=== PATIENT | female | born 1985 | race Caucasian/White ===

== ENCOUNTER → 2022-12-22 08:00 | Outpatient (CLI) | payer OTHER, SELFPAY ==
--- NOTE | ~2022-12-22 | MMUS_ITS ---
EXAMINATION: MM diagnostic melo BI w yana, US breast BI complete HISTORY: Bilateral breast lumps, on the right at 2:00 and on the left at 12:00 TECHNIQUE: Full field and spot ML, MLO and CC 3-D tomosynthesis images of both breasts were performed and synthetic 2-D images were generated. CAD analysis was submitted and interpreted. High resolution complete bilateral breast ultrasound examination including all 4 quadrants and subareolar areas was performed. COMPARISON: None BREAST PARENCHYMAL COMPOSITION: The breasts are extremely dense, which lowers the sensitivity of mamm ography. FINDINGS: MAMMOGRAPHIC FINDINGS: No suspicious mass or architectural distortion, malignant calcification, skin thickening or retractio n is detected. ULTRASOUND: Right breast: At the 11:00 area 4 cm from the nipple where the patient complains of a lump there is no suspicious m ass or shadowing, cyst or other significant sonographic finding. 12:00 5 cm from nipple: Parallel circumscribed 3.6 x 5.8 x 6.2 mm sonolucency, benign in appearance 4:00 3 cm from nipple: Parallel circumscribed 2.7 x 5.5 mm largely sonolucent lesion without posterio r shadowing, likely benign 8:00 9 cm from nipple: 1.5 x 3.3 mm sonolucency with through transmission, consistent with small cyst 10:00 6 cm from nipple: Parallel circumscribed hypoechoic lesion measuring 8 x 17 x 19 mm, without in ternal vascularity, with through transmission. Ultrasound-guided biopsy is recommended. Left breast: At area of reported palpable abnormality of left breast 11:00 position 10 cm from nipple there is no sonographic mass, cyst or suspicious shadowing. 12:00 4 cm from nipple: There are 2 parallel circumscribed hypoechoic lesions, one with fatty hilum s uggesting lymph node. There is no suspicious shadowing at either of these lesions nor internal vascul arity. These are likely benign. 7:00 5 cm from nipple: 1 x 2.6 mm cyst 10:00 10 cm from nipple: Circular 3 mm circumscribed sonolucency without internal vascularity or post erior shadowing, likely benign 10:00 7 cm from nipple: And well-circumscribed hypoechoic 5.2 x 3.1 x 4.1 mm lesion, without internal vascularity or suspicious shadowing 1:00 3 cm from nipple: Mildly irregular antiparallel hypoechoic approximately 4 x 4.4 mm lesion; due to the antiparallel configuration and irregular margins, ultrasound-guided biopsy is recommended IMPRESSION: 1. Bilateral breast masses 2. Ultrasound-guided biopsy of right 10:00 mass 6 cm from nipple and left 1:00 mass 3 cm from nipple is recommended BI-RADS category 4, suspicious findings. Dr. David telephoned the report and ultrasound-guided biopsy recommendations on 12/22/2022 at 1205 hour s to Nurse Domenica. Reviewed, dictated and finalized at location [facility]. IMPRESSION: 1. Bilateral breast masses 2. Ultrasound-guided biopsy of right 10:00 mass 6 cm from nipple and left 1:00 mass 3 cm from nipple is recommended BI-RADS category 4, suspicious findings. Dr. David telephoned the report and ultrasound-guided biopsy recommendations on 12/22/2022 at 1205 hours to Nurse Domenica.
--- NOTE | ~2022-12-22 | US_ITS ---
Pelvic ultrasound. Clinical History: Pelvic pain Technique: Realtime transabdominal and transvaginal scanning of the pelvis was performed. Color flow Doppler and Doppler spectral analysis were performed. Findings: The uterus is anteverted. The endometrial stripe has a thickness of 7 mm. No focal mass is identified. The right ovary measures 2.7 x 1.8 x 2.9 cm. No significant right ovarian or adnexal mass is seen. The left ovary measures 3.5 x 2.1 x 2.2 cm. No significant left ovarian or adnexal mass is seen. Vascular flow is present in both ovaries on Doppler spectral analysis. There is no evidence of free fluid in the cul de sac. Impression: Unremarkable pelvic ultrasound. Reviewed, dictated and finalized at [facility]. Impression: Unremarkable pelvic ultrasound.
== END ==
PROVIDERS: PCP Nurse Practitioner Family; Visit Provider Advanced Practice Midwife
DX: N63.10 Unspecified lump in the right breast, unspecified quadrant (principal); N63.20 Unspecified lump in the left breast, unspecified quadrant; R10.2 Pelvic and perineal pain; R92.8 Other abnormal and inconclusive findings on diagnostic imaging of breast
CPT/HCPCS: 76641; 76830; 77062; 77066; G0279

== ENCOUNTER 2023-01-05 08:47 | Outpatient (CLI) | payer OTHER, SELFPAY ==
--- NOTE | ~2023-01-05 | MMUS_ITS ---
MM post biopsy invasive RT, US breast biopsy RT w image EXAMINATION: US GUIDED NEEDLE BIOPSY WITH VACUUM ASSISTANCE DATE: 01/05/2023 13:26 CDT INDICATION: Right breast masses seen on prior examination. Ultrasound-guided core biopsy is requeste d to evaluate for malignancy. TECHNIQUE AND FINDINGS: The risks and potential benefits of the procedure were discussed with the patient, and written inform ed consent was obtained. After sterile preparation of the breast, 1% lidocaine was utilized for loca l anesthesia. 1% lidocaine with epinephrine was used for deep anesthesia. Initial images were perfor med to identify the right breast lesion at 1:00, 3 cm from the nipple. This mass cannot be reproduced on the current examination. No definite mammographic correlate is seen. The mass at 10:00, 6 cm from the nipple was identified. This was subsequently biopsied using ultrasound guidance. A 10G vacuum-assisted biopsy gun needle was advanced through to the outer edge of the region of inter est from a superior lateral approach utilizing sonographic guidance. A total of 5 tissue core sample s were obtained through the lesion. An Inrad tissue marker clip was then placed at the biopsy site. Hemostasis was achieved. The patient tolerated procedure well and there was no evidence of immediate complication. The patien t was given verbal instructions partly is from the department. Right breast mammograms to document t issue marker clip placement. The tissue samples were submitted to surgical pathology for histologic a nalysis. IMPRESSION: 1. Successful ultrasound-guided vacuum-assisted biopsy of right breast mass with tissue marker place ment. Please refer to pathology report for histologic analysis. Reviewed, dictated and finalized at location [facility]. IMPRESSION: 1. Successful ultrasound-guided vacuum-assisted biopsy of right breast mass wi th tissue marker placement. Please refer to pathology report for histologic filiberto lysis.
== END 2023-01-05 08:48 | disposition home or self-care (01) ==
PROVIDERS: PCP Nurse Practitioner Family; Visit Provider Surgery
DX: N63.10 Unspecified lump in the right breast, unspecified quadrant (principal); R92.8 Other abnormal and inconclusive findings on diagnostic imaging of breast
CPT/HCPCS: 19083; 88305; A4648